=== PATIENT | male | born 1990 | race Caucasian/White ===

== ENCOUNTER → 2020-01-25 | Outpatient (CLI) | payer MEDICAID ==
--- NOTE | 2020-01-25 16:55 | XR ---
EXAMINATION TYPE: XR cervical spine limited DATE OF EXAM: 01/25/2020 TECHNIQUE: Frontal, lateral, oblique and open mouth view of the cervical spine are obtained. HISTORY: M24.5 M9901 lifting injury COMPARISON: None FINDINGS: The cervical spine is visualized in its entirety from C1 thru the top of T1 level. Normal alignment without evidence of acute fracture or dislocation. No spondylolisthesis. The pre-vertebral soft tissue appears within normal limits. The atlantoaxial relationship is within normal limits on th e open mouth view. IMPRESSION: No acute fracture or dislocation is seen in the cervical spine.
--- NOTE | 2020-01-25 16:57 | XR ---
EXAMINATION TYPE: XR lumbar spine 2 or 3V DATE OF EXAM: 01/25/2020 CLINICAL HISTORY: M 24.5, M9901, lifting injury TECHNIQUE: Frontal and lateral images of the lumbar spine COMPARISON: None FINDINGS: There are 5 lumbar type vertebral bodies identified. The lumbar spine shows satisfactory alignment without evidence of acute fracture or dislocation. Vertebral body heights and disk space he ights are within normal limits. No spondylolisthesis. The overlying soft tissue appears unremarkable . IMPRESSION: No acute fracture or dislocation is seen in the lumbar spine.
== END | disposition home or self-care (01) ==
LOC: RAD 15:58
PROVIDERS: ATTEND Chiropractor
DX: M99.03 Segmental and somatic dysfunction of lumbar region (principal); M99.01 Segmental and somatic dysfunction of cervical region; M54.5 Low back pain
CPT/HCPCS: 72040; 72100